=== PATIENT | female | born 1995 | race Caucasian/White ===

== ENCOUNTER 2018-11-15 10:45 | Emergency (ER) | payer BC, OTHER ==
[~2018-11-15] VITALS: Ht 157.5 cm; Wt 61.2 kg
--- NOTE | 2018-11-15 10:53 | NUR ---
Dr Banerjee at the bedside for MSE.
[2018-11-15] MEDS ORDERED: FAMOTIDINE 20 MG TABLET PO ONE (11:00)
[2018-11-15] MEDS ORDERED: FAMOTIDINE 20 MG TABLET ONE (11:05)
--- NOTE | 2018-11-15 11:09 | NUR ---
Patient discharged to home in stable conditon. Written and verbal after care instructions given. Patient verbalizes understanding of instructions.
[2018-11-15 11:10] VITALS: BP 105/67
== END 2018-11-15 11:23 | disposition home or self-care (01) ==
LOC: ER 10:45
DX: J30.2 Other seasonal allergic rhinitis (principal); Z91.030 Bee allergy status
CPT/HCPCS: A4663